=== PATIENT | male | born 1990 ===

== ENCOUNTER 2017-06-27 03:56 | Emergency (ER) | payer SELFPAY ==
--- NOTE | 2017-06-27 04:17 | C.PDOC ---
History Of Present Illness <Esther Ambrose - Last Filed: 06/27/17 14:44> <Atiya Mckoyony - Last Filed: 06/28/17 14:48> 27 y/o brought to ED by [facility] for public intoxication. Pt was found to be in violent behavior. He admits to drinking a lot. Pt is combative, cursing loudly and in 4 point restraints. ROS unobtainable. (Atiya Mckoy) <Esther Ambrose - Last Filed: 06/27/17 14:44> History Per: Patient History/Exam Limitations: no limitations Onset/Duration Of Symptoms: Hrs Current Symptoms Are (Timing): Still Present Suicide/Self Injury Attempted (Context): None Modifying Factor(s): Alcohol Associated Symptoms: Anger Involuntary Hold By: Local Law Enforcement Recent travel outside of the [place]: No <Atiya Mckoy - Last Filed: 06/28/17 14:48> Time Seen by Provider: 06/27/17 04:14 Chief Complaint (Nursing): Substance Abuse Past Medical History Reviewed: Historical Data, Nursing Documentation, Vital Signs - Medical History PMH: No Chronic Diseases Surgical History: No Surg Hx Family History: States: No Known Family Hx - Social History Hx Alcohol Use: Yes Hx Substance Use: No - Immunization History Hx Tetanus Toxoid Vaccination: No Hx Influenza Vaccination: No Hx Pneumococcal Vaccination: No <Atiya Mckoy - Last Filed: 06/28/17 14:48> Vital Signs: Last Vital Signs Temp 98.7 F 06/27/17 15:00 Pulse 99 H 06/27/17 15:00 Resp 20 06/27/17 15:00 BP 130/89 06/27/17 15:00 Pulse Ox 99 06/27/17 15:00 Review Of Systems Review Of Systems: ROS cannot be obtained secondary to pt's inabilty to answer questions. (Due to clinical condition) <Atiya Mckoy - Last Filed: 06/28/17 14:48> Physical Exam - Physical Exam Appears: Non-toxic, No Acute Distress, Combative, Other (Cursing loudly; uncooperative; 4 point restraints; no evidence of trauma ) Skin: Normal Color, Warm, Dry, Other (No evidence of IV drug use) Head: Atraumatic, Normacephalic Eye(s): bilateral: Normal Inspection, PERRL Oral Mucosa: Moist Neck: Supple Chest: Symmetrical, No Tenderness Cardiovascular: Rhythm Regular Respiratory: Normal Breath Sounds, No Decreased Breath Sounds, No Rales, No Rhonchi, No Wheezing Gastrointestinal/Abdominal: Soft, No Tenderness, No Distention Extremity: Normal ROM (Moving all extremities with no difficulty ) Extremity: Bilateral: Normal Color And Temperature, Normal ROM Neurological/Psych: Normal Speech, Normal Cognition <Atiya Mckoy - Last Filed: 06/28/17 14:48> ED Course And Treatment - Laboratory Results Result Diagrams: 06/27/17 04:28 06/27/17 04:28 <Esther Ambrose - Last Filed: 06/27/17 14:44> - Laboratory Results Result Diagrams: 06/27/17 04:28 06/27/17 04:28 <Atiya Mckoy - Last Filed: 06/28/17 14:48> Progress - Data Reviewed Data Reviewed: Lab <Esther Ambrose - Last Filed: 06/27/17 14:44> <Atiya Mckoy - Last Filed: 06/28/17 14:48> - Re-Evaluation Re-evaluation Note: 06/27/17 08:21 PER RN, PT W INCR AGITATION AND REMOVED IV. EXAM SINUS TACH 110, SLEEPING 95% RA. 06/27/17 13:44 PERSIST CLIN INTOX, UNSTEADY GAIT. FAMILY @ BEDSIDE. PT UNSAFE FOR DC 06/27/17 14:44 STEADY GAIT. FAMILY @ BEDSIDE WILL TAKE PT HOME (Esther Ambrose) Medical Decision Making <Esther Ambrose - Last Filed: 06/27/17 14:44> <Atiya Mckoy - Last Filed: 06/28/17 14:48> Medical Decision Making: Administered Ativan. Ordered blood work and urinalysis. Impression: Substance abuse; mostly likely alcohol. Will medically clear and reassess. ( Atiya Mckoy) Disposition Counseled Patient/Family Regarding: Studies Performed, Diagnosis - Disposition Disposition Time: 14:44 <Esther Ambrose - Last Filed: 06/27/17 14:44> <Atiya Mckoy - Last Filed: 06/28/17 14:48> - Disposition Referrals: [facility] [Outside] [facility] [Outside] Disposition: HOME/ ROUTINE Condition: IMPROVED Instructions: Alcohol Intoxication (ED) Forms: [facility] ([facility]) - Clinical Impression Clinical Impression: Alcohol intoxication <Esther Ambrose - Last Filed: 06/27/17 14:44> - Scribe Statement The provider has reviewed the documentation as recorded by the Scribe <Atiya Mckoy - Last Filed: 06/28/17 14:48> - Scribe Statement Monica Bacon All medical record entries made by the Scribe were at my direction and personally dictated by me. I have reviewed the chart and agree that the record accurately reflects my personal performance of the history, physical exam, medical decision making, and the department course for this patient. I have also personally directed, reviewed, and agree with the discharge instructions and disposition. (Atiya Mckoy)
--- NOTE | 2017-06-27 04:21 | C.PDOC ---
Time Seen by Provider: 06/27/17 04:14 Chief Complaint (Nursing): Substance Abuse Past Medical History - Social History Hx Alcohol Use: Yes Hx Substance Use: No - Immunization History Hx Tetanus Toxoid Vaccination: No Hx Influenza Vaccination: No Hx Pneumococcal Vaccination: No Disposition - Disposition
[2017-06-27 04:34] LABS: BASO # 0.2 K/uL (0.0-0.2); BASO % 1.3 % (0.0-2.0); EOS # 0.3 K/uL (0.0-0.7); EOS % 2.7 % (0.0-4.0); HEMOGLOBIN 14.4 g/dL (12.0-18.0); LYMPH # 5.2 K/uL (1.0-4.3); LYMPH % 40.7 % (20.0-40.0); MEAN CELL VOLUME 99.9 fL (80.0-94.0); MEAN CORPUSCULAR HEMOGLOBIN 34.4 pg (27.0-31.0); MEAN CORPUSCULAR HGB CONC 34.4 g/dL (33.0-37.0); MEAN PLATELET VOLUME 9.1 fL (7.2-11.7); MONO # 1.4 K/uL (0.0-0.8); MONO % 10.7 % (0.0-10.0); NEUT # 5.6 K/uL (1.8-7.0); NEUT % 44.6 % (50.0-75.0); NRBC % 0.1 % (0.0-2.0); RBC 4.19 Mil/uL (4.40-5.90); RED CELL DISTRIBUTION WIDTH 14.4 % (11.5-14.5); WHITE BLOOD COUNT 12.7 K/uL (4.8-10.8)
[2017-06-27 04:42] LABS: URINE BILIRUBIN NEGATIVE (NEGATIVE); URINE BLOOD NEGATIVE (NEGATIVE); URINE CLARITY Clear (Clear); URINE COLOR Yellow (YELLOW); URINE GLUCOSE (UA) NORMAL (Normal); URINE HYALINE CAST 0-2 /lpf (0-2); URINE LEUKOCYTE ESTERASE NEG Leu/uL (Negative); URINE NITRATE NEGATIVE (NEGATIVE); URINE PROTEIN 1+ mg/dL (NEGATIVE); URINE UROBILINOGEN NORMAL mg/dL (0.2-1.0)
[2017-06-27 05:27] LABS: BARBITURATES, UR NEGATIVE (NEGATIVE); BENZODIAZEPINES, UR NEGATIVE (NEGATIVE); PHENCYCLIDINE, UR NEGATIVE (NEGATIVE)
[2017-06-27 05:32] LABS: ALB/GLOB RATIO 1.1 (1.0-2.1); ALBUMIN 4.6 g/dL (3.5-5.0); ALT/SGPT 171 U/L (21-72); AST/SGOT 245 U/L (17-59); BLOOD UREA NITROGEN 6 mg/dL (9-20); CALCIUM 9.1 mg/dl (8.6-10.4); GFR AFRICAN-AMERICAN > 60; GFR NON-AFRICAN AMERICAN > 60
[2017-06-27] MEDS ORDERED: Sodium Chloride 0.9% 1,000 ML IV ONE ×2 (06:22)
[2017-06-27 11:44] VITALS: RESP 20
[2017-06-27 15:01] VITALS: BP 130/89; PULSE 99; TEMP 98.7; O2SAT 99
== END 2017-06-27 15:13 | disposition home or self-care (01) ==
LOC: C.ER 03:56
DX: F10.129 Alcohol abuse with intoxication, unspecified (principal); Y90.8 Blood alcohol level of 240 mg/100 ml or more
CPT/HCPCS: 80053; 81001; 82948; 85025; 96372; 96374; 99285; G0480; J2060; J3486; J7040